=== PATIENT | male | born 1955 | race Asian ===

== ENCOUNTER → 2022-05-28 09:51 | Outpatient (CLI) | payer MEDICARE, OTHER, SELFPAY ==
[2022-05-28 11:03] LABS: COVID19 -Nasal RAPID Negative (Negative)
== END ==
PROVIDERS: PCP Internal Medicine; Referring Provider Internal Medicine; Visit Provider Internal Medicine
DX: Z20.822 Contact with and (suspected) exposure to COVID-19 (principal)
CPT/HCPCS: 87635; C9803

== ENCOUNTER → 2022-05-28 09:53 | Outpatient (CLI) | payer MEDICARE, OTHER, SELFPAY ==
--- NOTE | 2022-05-30 07:27 | PM.PFT.1 ---
Pulmonary Function Test Referral & Results Date Patient Seen: 05/28/22 Requesting provider: Bert Avelar Indication: Wheezing Results: The spirometry demonstrates an FVC of 2.47 L which is 81% of predicted. The FEV1 was measured at 2.10 L which is 93% of predicted. The FEV1/FVC ratio was 85 which is 113% of predicted. Following the administration of bronchodilator there was a 24% improvement in FEF 25-75%. Lung volumes show an SVC of 2.77 L which is 87% of predicted. The diffusing capacity was measured at 22.93 which is 121% of predicted. The maximum voluntary ventilation was normal Interpretation: This study demonstrates probably normal pulmonary function.
== END ==
PROVIDERS: PCP Internal Medicine; Referring Provider Internal Medicine; Visit Provider Internal Medicine
DX: J45.909 Unspecified asthma, uncomplicated (principal); J98.8 Other specified respiratory disorders; Z20.822 Contact with and (suspected) exposure to COVID-19
CPT/HCPCS: 87635; 94060; 94726; 94729; C9803

== ENCOUNTER → 2022-06-10 08:00 | Outpatient (CLI) | payer MEDICARE, OTHER, SELFPAY ==
[2022-06-10 09:05] LABS: Alanine Aminotransferase 46 IU/L (<50); Albumin 4.2 g/dL (3.5-5.0); Albumin Globulin Ratio 1.4 (1.0-2.8); Alkaline Phosphatase 67 U/L (38-126); Aspartate Aminotransferase 30 IU/L (17-59); BUN Creatinine Ratio 19.5 (6-22); Bilirubin Total 0.8 mg/dL (0.2-1.3); Blood Urea Nitrogen 15 mg/dL (9-20); Calcium 9.3 mg/dL (8.4-10.2); Carbon Dioxide 26 mmol/L (22-32); Chloride 101 mmol/L (98-107); Cholesterol 215 mg/dL (140-199); Estimated Glomerular Filt Rate > 60 mL/min (>60); Glucose 214 mg/dL (80-110); HDL Cholesterol 33 mg/dL (40-60); HEMOLYSIS < 15 (0-50); Potassium 4.1 mmol/L (3.4-5.1); Sodium 137 mmol/L (137-145); Total Protein 7.2 g/dL (6.3-8.2)
[2022-06-10 09:15] LABS: Triglycerides 667 mg/dL (35-150)
[2022-06-10 09:29] LABS: Prostate Specific Antigen Scrn 2.23 ng/mL (0.1-4.0)
== END ==
PROVIDERS: PCP Internal Medicine; Referring Provider Internal Medicine; Visit Provider Internal Medicine
DX: E78.2 Mixed hyperlipidemia (principal); Z12.5 Encounter for screening for malignant neoplasm of prostate; I10 Essential (primary) hypertension; J30.1 Allergic rhinitis due to pollen
CPT/HCPCS: 36415; 80053; 80061; G0103

== ENCOUNTER → 2022-06-18 09:47 | Outpatient (CLI) | payer MEDICARE, OTHER, SELFPAY ==
[2022-06-18 10:58] LABS: Hemoglobin A1C% w Est Avg Glu 7.8 % (4.0-6.0)
== END ==
PROVIDERS: PCP Internal Medicine; Referring Provider Internal Medicine; Visit Provider Internal Medicine
DX: R73.9 Hyperglycemia, unspecified (principal)
CPT/HCPCS: 36415; 83036

== ENCOUNTER → 2022-08-27 14:36 | Outpatient (CLI) | payer MEDICARE, OTHER, SELFPAY ==
--- NOTE | 2022-09-08 14:57 | DIAB.MNT ---
Initial Diabetes Medical Nutrition Therapy Assessment Name: Adan Rooney V Date: 08/27/22 Time: 3-4p Dx: Type II Diabetes Provider: Rosio Adan presents today for initial visit regarding T2DM. States he was dx sometime in 2017 or 2018. Endorses FH of DM with a brother, otherwise he is unsure. States his HgA1c has been 6.8% at the [facility]. Reports he achieved this by reducing rice intake and eliminating sugar in his coffee. States his TG have been high for a long time. Working with provider on this. PMH of HTN, HLD, glaucoma, and anxiety reported. Has not attended diabetes ed in the past. Has cut out rice from his diet for most meals now. Use to eat 1c with meals. Was having more sweets and soda occasionally Diet Recall: 8a: 1/2-1c oatmeal, 1/2-1c fruit, nuts 12p: often veggies and protein, no rice snack: unsalted nuts 6p: meat and veggies snacks nuts Beverages; 32-50oz water per day, 1c unsweet tea Anthropometrics: Ht: 5' Wt: 135# Physical Activity: Walk 60 min per day or elliptical 45-60 min on rainy days. Gardening. Self-Monitoring Blood Glucose: None but interested. Diabetes Medications: None Pertinent Labs: 7.8% HgA1c 06/2022 Past Medical History: (Last Updated 07/04/22 @ 15:57 by Bert Avelar MD) Diabetes type 2, controlled Essential hypertension H/O adenomatous polyp of colon Hay fever Hypertriglyceridemia Mild asthma without complication normal PFTs May 2022 Mixed hyperlipidemia Uncontrolled type 2 diabetes mellitus with hyperglycemia Nutrition Rx: Carbohydrates: Meal:30-45g Snack:15g *starting with lower carb recs based on hgA1c and current carb intake of 0g at most meals. Can consider more 45g consistent meals but would like to see more SMBG to see impact of food without medication and hgA1c >7%. Nutrition Diagnosis: - Nutrition and food related knowledge deficit r/t no previous MNT or DSME aeb pt report - Self monitoring deficit r/t knowledge deficit aeb pt report Intervention: This participant was very receptive. Provided appropriate educational handouts. Discussed the following topics: Completed intake assessment. Discussed barriers to care. Pathophysiology of T2DM HgA1c, its correlation to blood glucose numbers, and rationale for goal Importance of self-monitoring, how often, and when to check. Suggested checking at different times to evaluate meals Plate Method, impact of macronutrients on blood sugar, meal timing, carbohydrate counting, pairing macronutrients and spreading out carbohydrates for better blood glucose management Recommended servings for carbohydrates at meals and snacks Brainstormed appropriate meal plan based on food preferences Role of physical activity and following provider guidelines for safety Created SMART goals for patient self-care and success. Goals: Measure carb portions at meals if adding Start checking BG once you receive the supplies Follow-up: SACHI KONX follow-up in 3 weeks for classes and then 1:1 thereafter. Imani Clemente RDN, [facility] Certified Diabetes Care and Jig Boring Machine Operator For Metal P: [phone] Thank you for this referral
== END ==
PROVIDERS: PCP Internal Medicine; Referring Provider Internal Medicine; Visit Provider Internal Medicine
DX: E11.9 Type 2 diabetes mellitus without complications (principal); Z71.3 Dietary counseling and surveillance
CPT/HCPCS: 97802

== ENCOUNTER → 2022-09-02 09:28 | Outpatient (CLI) | payer MEDICARE, OTHER, SELFPAY ==
--- NOTE | 2022-09-08 15:09 | DIAB.FU ---
Diabetes Education Class Series: Diabetes and Nutrition Name: Adan Rooney V Date: 09/02/22 Time: 930a-12p Adan presents today for class 1 of 3 for DSME. Reports he feels he may not be drinking enough water based on discussion today. He participated in class today and seemed engaged. Class topics covered: ? Debunk nutrition myths and discuss how to sustain healthy eating long-term through moderation and variety ? Define macronutrients and determine their impact on blood sugars ? Discuss macronutrient pairing, Plate Method, and carb counting ? Review general recommendations for carbohydrates ? Practice label reading ? Discuss the role of fiber in diabetes and provide examples of sources ? Review heart health nutrition: fats, fiber, and sodium ? Determine recommendations for grocery shopping and eating out ? Discuss alcohol recommendations ? Review the role of substitute sugars in diabetes management ? Set SMART goals Goal Set: Measure water intake. Follow-up: Diabetes Physiology and Medication Class in one week Imani Clemente RDN, [facility] Registered Dietitian, Certified Diabetes Care and Promotions Executive Producer [phone] [email or web address]
== END ==
PROVIDERS: PCP Internal Medicine; Referring Provider Internal Medicine; Visit Provider Internal Medicine
DX: E11.9 Type 2 diabetes mellitus without complications (principal); Z71.3 Dietary counseling and surveillance
CPT/HCPCS: G0109

== ENCOUNTER → 2022-09-09 09:30 | Outpatient (CLI) | payer MEDICARE, OTHER, SELFPAY ==
--- NOTE | 2022-09-10 16:55 | DIAB.FU ---
Diabetes Education Class Series: Diabetes Physiology and Medications Name: Adan Rooney V Date: 09/09/22 Time: [id number] Adan presents for class 2 of 3 for DSME. Has questions regarding fluids recs today and how this impact diabetes/BG/overall health. He has been working on his water intake. Class topics covered: ? Diabetes pathophysiology ? Discuss different types of diabetes ? Review criteria for diagnosing diabetes ? Review HgA1c measurement and associated blood sugars ? Review blood sugar monitoring safety, technique, and goals ? Discuss ways to reduce complications associated with diabetes, includes microvascular and macrovascular complications ? Review diabetes medications types, action, and side effects ? Health care visits recommended for people with T2DM ? Immunization recommended for people with T2DM ? SMART goals review Follow-up: Diabetes Lifestyle and Ongoing Support Class next week Imani Clemente RDN, [facility] Registered Dietitian, Certified Diabetes Care and Centrifuge Separator Tender [phone] [email or web address]
== END ==
PROVIDERS: PCP Internal Medicine; Referring Provider Internal Medicine; Visit Provider Internal Medicine
DX: E11.9 Type 2 diabetes mellitus without complications (principal); Z71.3 Dietary counseling and surveillance
CPT/HCPCS: G0109

== ENCOUNTER → 2022-09-16 09:34 | Outpatient (CLI) | payer MEDICARE, OTHER, SELFPAY ==
--- NOTE | 2022-09-16 11:50 | DIAB.FU ---
Diabetes Education Class Series: Diabetes Lifestyle Change and Ongoing Support Name: Adan Rooney V Date: 09/16/22 Time: [id number] Adan presents for class 3 of 3 for DSME. States he as been measuring carb portions and checking BG. Reports he has been checking his BG and walking regularly. Has some questions as to when to check BG, which we reviewed today. Also, states he would like to work on more strength training and stress management with meditation. Class topics covered: ? Discuss the difference between physical activity and exercise ? Determine physical activity benefits and impact on diabetes ? Review physical activity recommendations and safety ? Discuss emergency preparedness ? Discuss diabetes and emotions (diabetes burnout/distress) ? Review and practice stress management techniques ? Review support groups and community resources ? Discuss the role of family support in diabetes care ? What is going well? Challenges of diabetes? ? Set SMART goals Goal Set: Incorporate strength training safely. Follow-up: 1:1 visit follow-up Imani Clemente RDN, [facility] Registered Dietitian, Certified Diabetes Care and Document Review Specialist [phone] [email or web address]
== END ==
PROVIDERS: PCP Internal Medicine; Referring Provider Internal Medicine; Visit Provider Internal Medicine
DX: E11.9 Type 2 diabetes mellitus without complications (principal); Z71.3 Dietary counseling and surveillance
CPT/HCPCS: G0109

== ENCOUNTER → 2022-10-01 13:04 | Outpatient (CLI) | payer MEDICARE, OTHER, SELFPAY ==
--- NOTE | 2022-10-14 17:21 | DIAB.MNTFU ---
Follow-up Diabetes Medical Nutrition Therapy Assessment Name: Adan Rooney V Date: 10/01/22 Time: 1:10-1:45p Dx: Type II Diabetes Toribio presents for follow-up after completion of DSME classes. States he continues to be very conscious of carb portions, more specifically rice. Does voice some concern about unintentional weight loss as a result. States he is down 10-12# with a recent weight os 127#. Diet recall indicates very small portions of rice 1/3c at meals. Ideally he could increase this up to 1 cup per meal, however he would prefer to keep portions small. Most meals are 15-30g CHO and snacks are often 0-20g CHO. Anthropometrics: Ht: 5' Wt: 127# reported Physical Activity: elliptical 30-45 minutes 1-2 days per week and walks other days. Self-Monitoring Blood Glucose: States he has noticed that his peak BG is often 1 hour pc. All BG in goal, with exception to one elevated FBG Date Pre Post Pre Post Pre Post HS 09/25 119 167 113 09/26 126 09/27 141 100 122 09/28 120 159 09/29 116 155 137 121 09/30 118 168 130 163 10/01 110 121 Diabetes Medications: None Pertinent Labs: 7.8% HgA1c 06/2022 Past Medical History: (Last Updated 07/04/22 @ 15:57 by Bert Avelar MD) Diabetes type 2, controlled Essential hypertension H/O adenomatous polyp of colon Hay fever Hypertriglyceridemia Mild asthma without complication normal PFTs May 2022 Mixed hyperlipidemia Uncontrolled type 2 diabetes mellitus with hyperglycemia Nutrition Rx: Carbohydrates: Meal:30-45g Snack:15g *can increase to 30-45g per diet recall Nutrition Diagnosis: - Nutrition and food related knowledge deficit r/t no previous MNT or DSME aeb pt report - improved - Self monitoring deficit r/t knowledge deficit aeb pt report - improved - Predicted inadequate CHO intake r/t trying to reduce to manage BG aeb diet recall <30g at meals and pt report - new Intervention: This participant was very receptive. Provided appropriate educational handouts. Discussed the following topics: Blood sugar review and trends. Room for increased carb intake in moderation. Increasing intake to sustain weight goals. Physical activity plan and progress Created SMART goals for patient self-care and success. Goals: Measure carb portions at meals if adding- met Start checking BG once you receive the supplies- met Increase rice to 1/2-1c- new Follow-up: SACHI KNOX follow-up prn. Adan is managing his BG very well. Some concerns with his unintentional weight loss and low intake on some meals. He plans to call for follow-up if HgA1c goes up or if weight continues to trend down. Imani Clemente, SACHI, [facility] Certified Diabetes Care and Conciliation Court Judge P: [phone] Thank you for this referral
== END ==
PROVIDERS: PCP Internal Medicine; Referring Provider Internal Medicine; Visit Provider Internal Medicine
DX: E11.9 Type 2 diabetes mellitus without complications (principal); Z71.3 Dietary counseling and surveillance
CPT/HCPCS: 97803

== ENCOUNTER → 2022-10-08 08:09 | Outpatient (CLI) | payer MEDICARE, OTHER, SELFPAY ==
[2022-10-08 10:51] LABS: Hemoglobin A1C% w Est Avg Glu 5.4 % (4.0-6.0)
[2022-10-08 10:53] LABS: Cholesterol 130 mg/dL (140-199); HDL Cholesterol 36 mg/dL (40-60); LDL Cholesterol Calculated 74 mg/dL (<100); Triglycerides 102 mg/dL (35-150)
[2022-10-08 11:05] LABS: LDL Cholesterol Direct 63 mg/dL (<100)
== END ==
PROVIDERS: PCP Internal Medicine; Referring Provider Internal Medicine; Visit Provider Internal Medicine
DX: E11.65 Type 2 diabetes mellitus with hyperglycemia (principal)
CPT/HCPCS: 36415; 80061; 83036; 83721

== ENCOUNTER → 2022-12-31 08:02 | Outpatient (CLI) | payer MEDICARE, OTHER, SELFPAY ==
[2022-12-31 09:43] LABS: BUN Creatinine Ratio 28.8 (6-22); Blood Urea Nitrogen 19 mg/dL (9-20); Calcium 8.8 mg/dL (8.4-10.2); Carbon Dioxide 27 mmol/L (22-32); Chloride 101 mmol/L (98-107); Estimated Glomerular Filt Rate > 60 mL/min (>60); Glucose 107 mg/dL (80-110); HEMOLYSIS < 15 (0-50); Potassium 3.8 mmol/L (3.4-5.1); Sodium 140 mmol/L (137-145)
[2022-12-31 10:30] LABS: Hemoglobin A1C% w Est Avg Glu 5.2 % (4.0-6.0)
== END ==
PROVIDERS: PCP Internal Medicine; Referring Provider Internal Medicine; Visit Provider Internal Medicine
DX: E11.9 Type 2 diabetes mellitus without complications (principal); E78.2 Mixed hyperlipidemia; I10 Essential (primary) hypertension
CPT/HCPCS: 36415; 80048; 83036

== ENCOUNTER → 2023-04-01 07:54 | Outpatient (CLI) | payer MEDICARE, OTHER, SELFPAY ==
[2023-04-01 09:16] LABS: Alanine Aminotransferase 40 IU/L (<50); Albumin 4.6 g/dL (3.5-5.0); Albumin Globulin Ratio 1.6 (1.0-2.8); Alkaline Phosphatase 56 U/L (38-126); Aspartate Aminotransferase 30 IU/L (17-59); BUN Creatinine Ratio 27.5 (6-22); Bilirubin Total 0.6 mg/dL (0.2-1.3); Blood Urea Nitrogen 22 mg/dL (9-20); Calcium 9.5 mg/dL (8.4-10.2); Carbon Dioxide 28 mmol/L (22-32); Chloride 101 mmol/L (98-107); Cholesterol 134 mg/dL (140-199); Estimated Glomerular Filt Rate > 60 mL/min (>60); Globulin 2.9 g/dL (1.7-4.1); Glucose 124 mg/dL (80-110); HDL Cholesterol 33 mg/dL (40-60); HEMOLYSIS < 15 (0-50); LDL Cholesterol Calculated 69 mg/dL (<100); Potassium 4.5 mmol/L (3.4-5.1); Sodium 140 mmol/L (137-145); Total Protein 7.5 g/dL (6.3-8.2); Triglycerides 161 mg/dL (35-150)
[2023-04-02 08:13] LABS: Labcorp Hemoglobin (Hb) A1c 5.1 % (4.8-5.6)
== END ==
PROVIDERS: PCP Internal Medicine; Referring Provider Internal Medicine; Visit Provider Internal Medicine
DX: I10 Essential (primary) hypertension (principal); E78.2 Mixed hyperlipidemia; E11.9 Type 2 diabetes mellitus without complications
CPT/HCPCS: 36415; 80053; 80061; 83036

== ENCOUNTER 2023-06-16 12:45 | Day surgery (SDC) | payer MEDICARE, OTHER, SELFPAY ==
[2023-06-16] VITALS (7 sets, daily range): BP systolic 81–157; BP diastolic 57–78; PULSE 56–85; RESP 16–18; TEMP 36.1–36.4; O2SAT 93–97; BMI 23.8
[2023-06-16] MEDS: LACTATED RINGERS 1,000 ML 200 ML IV (13:42)
--- NOTE | 2023-06-16 14:09 | P.HP_ITS ---
History of Present Illness History of Present Illness Date Patient Seen: 06/16/23 Time Patient Seen: 14:09 Chief complaint: Screening Colonoscopy Narrative: 67-year-old man personal history of colonic polyps here for screening colonoscopy. Last colonoscopy approximately 6 years ago. No family history of intestinal malignancy. No abdominal concerns including abdominal pain, unintentional weight loss blood per rectum. [facility] Medical History Diabetes type 2, controlled Essential hypertension H/O adenomatous polyp of colon Hay fever Hypertriglyceridemia Mild asthma without complication Mixed hyperlipidemia Social History household members: spouse Smoking Status: Never smoker Meds Home Medications and Allergies Home Medications Medication Instructions Recorded Confirmed Type aspirin 81 mg tablet,delayed 81 mg PO DAILY #90 tabs 05/12/22 06/16/23 Rx release atorvastatin 20 mg tablet 20 mg PO BEDTIME #90 tabs 05/12/22 06/16/23 Rx montelukast 10 mg tablet 10 mg PO DAILY #90 tabs 05/12/22 06/16/23 Rx clobetasol 0.05 % topical cream 1 applic topical BID PRN rash #45 10/17/22 06/16/23 Rx grams fluticasone propionate 50 2 spray intranasal BEDTIME #16 01/02/23 06/16/23 Rx mcg/actuation nasal grams spray,suspension hydrochlorothiazide 25 mg tablet 25 mg PO DAILY #90 tabs 01/09/23 06/16/23 Rx latanoprost 0.005 % eye drops 1 drp EYE-LEFT DAILY glaucoma 01/09/23 06/16/23 History loratadine 10 mg tablet 10 mg PO DAILY #90 tabs 01/09/23 06/16/23 Rx losartan 100 mg tablet 100 mg PO DAILY #90 tabs 01/09/23 06/16/23 Rx meloxicam 7.5 mg tablet 7.5 mg PO DAILY #90 tabs 02/11/23 06/16/23 Rx Allergies Allergy/AdvReac Type Severity Reaction Status Date / Time No Known Drug Allergies Allergy Verified 04/10/23 14:37 Exam Vital Signs (past 8 hours): - 06/16/23 13:32 Temperature 97.3 F L Pulse Rate 85 Respiratory Rate 16 Blood Pressure 157/78 H Pulse Oximetry 96 Oxygen Delivery Method Room Air Oxygen Delivery Method Room Air Narrative Exam Narrative: General adult man alert oriented no acute distress Chest nonlabored respiration Abdomen soft nontender nondistended Assessment & Plan Assessment and plan (1) H/O adenomatous polyp of colon: Status: Inactive Assessment & Plan narrative: The patient requires colorectal screening and colonoscopy is recommended. Technical details were discussed. Risks, benefits, alternatives explained. Risks including but not limited to myocardial infarction, aspiration, bleeding, pain, missed lesion, incomplete examination, need for further radiographic studies, colonic perforation, and need for major abdominal surgery were discussed. All questions were answered to their satisfaction, and they are in agreement with this plan.
--- NOTE | 2023-06-16 14:09 | PM.OP.COLON ---
Operative Date/Time/Diagnoses Date of procedure: 06/16/23 Time of procedure: 14:09 Pre-op diagnosis: Personal history of colonic polyps Post-op diagnosis: same Procedure & Clinicians Study performed: Colonoscopy Same procedure as scheduled: Yes Indications: Personal history of colonic polyps. Colorectal screening. Surgeon: Ishan Avalos Procedure Notes Procedure in detail: The history and physical was performed/updated and the patient is ASA class is 2. The procedure was discussed in detail with the patient. Potential risks complications including infection, bleeding, missed diagnosis, perforation, need for surgery, and were explained. Their questions were answered and informed consent was obtained. Patient was brought to the procedure room and placed standard monitoring equipment. The patient's vital signs were monitored continuously throughout the entire procedure. Prior to starting time-out was performed. The patient was placed in the left lateral recumbent position. Procedural sedation was administered by anesthesia. Examination began with a thorough inspection of the perianal area there was no evidence of fissures, fistulae, external hemorrhoids or cutaneous malignancy. The colonoscopy scope was then placed into the anal canal and was advanced to the cecum, which was identified by the ileocecal valve, the appendiceal orifice and the confluence of the taenia. The scope was then slowly withdrawn examining colon thoroughly in all directions, irrigating it of any residual stool. No masses or polyps. Normal healthy colon. The patient tolerated the procedure well. They will be discharged once criteria are met. The prep was of good/excellent quality. The withdrawl time was 6 minutes. Impression: Normal colonoscopy Post-procedure Recommendations: Colonoscopy in 10 years Disposition: same day surgery
== END 2023-06-16 15:30 | disposition home or self-care (01) ==
PROVIDERS: PCP Internal Medicine; Referring Provider Surgery; Visit Provider Surgery
PROC: 0DJD8ZZ Inspection of Lower Intestinal Tract, Via Natural or Artificial Opening Endoscopic (ICD-10-PCS; CPT 45378; principal; 2023-06-16 14:15)
DX: Z12.11 Encounter for screening for malignant neoplasm of colon (principal); Z86.010 Personal history of colon polyps
CPT/HCPCS: G0105; J2704

== ENCOUNTER → 2023-06-29 07:28 | Outpatient (CLI) | payer MEDICARE, OTHER, SELFPAY ==
[2023-06-29 07:53] LABS: Hemoglobin A1C% w Est Avg Glu 4.7 % (4.0-6.0)
[2023-06-29 08:29] LABS: Alanine Aminotransferase 47 IU/L (<50); Albumin 4.3 g/dL (3.5-5.0); Albumin Globulin Ratio 1.5 (1.0-2.8); Alkaline Phosphatase 36 U/L (38-126); Aspartate Aminotransferase 42 IU/L (17-59); BUN Creatinine Ratio 26.3 (6-22); Bilirubin Total 0.9 mg/dL (0.2-1.3); Blood Urea Nitrogen 21 mg/dL (9-20); Calcium 9.5 mg/dL (8.4-10.2); Carbon Dioxide 25 mmol/L (22-32); Chloride 105 mmol/L (98-107); Cholesterol 117 mg/dL (140-199); Estimated Glomerular Filt Rate > 60 mL/min (>60); Globulin 2.8 g/dL (1.7-4.1); Glucose 111 mg/dL (80-110); HDL Cholesterol 44 mg/dL (40-60); HEMOLYSIS < 15 (0-50); LDL Cholesterol Calculated 60 mg/dL (<100); Sodium 138 mmol/L (137-145); Total Protein 7.1 g/dL (6.3-8.2); Triglycerides 65 mg/dL (35-150)
[2023-06-29 09:00] LABS: Prostate Specific Antigen Scrn 3.25 ng/mL (0.1-4.0)
== END ==
PROVIDERS: PCP Internal Medicine; Referring Provider Internal Medicine; Visit Provider Internal Medicine
DX: E11.9 Type 2 diabetes mellitus without complications (principal); Z12.5 Encounter for screening for malignant neoplasm of prostate; E78.1 Pure hyperglyceridemia; E78.2 Mixed hyperlipidemia; I10 Essential (primary) hypertension
CPT/HCPCS: 36415; 80053; 80061; 83036; G0103

== ENCOUNTER → 2023-12-30 07:51 | Outpatient (CLI) | payer MEDICARE, OTHER, SELFPAY ==
[2023-12-30 09:33] LABS: BUN Creatinine Ratio 26.8 (6-22); Blood Urea Nitrogen 22 mg/dL (9-20); Calcium 9.6 mg/dL (8.4-10.2); Carbon Dioxide 25 mmol/L (22-32); Chloride 103 mmol/L (98-107); Estimated Glomerular Filt Rate > 60 mL/min (>60); Glucose 104 mg/dL (80-110); HEMOLYSIS < 15 (0-50); Potassium 4.1 mmol/L (3.4-5.1); Sodium 138 mmol/L (137-145)
[2023-12-30 10:53] LABS: Creatinine Urine Random 83.8 mg/dL
[2023-12-30 10:57] LABS: Microalbumin Urine Random < 0.6 mg/dL (0-1.6)
[2023-12-30 12:11] LABS: Hemoglobin A1C% w Est Avg Glu 4.9 % (4.0-6.0)
== END ==
LOC: LAB 07:52
PROVIDERS: PCP Internal Medicine; Referring Provider Internal Medicine; Visit Provider Internal Medicine
DX: E11.9 Type 2 diabetes mellitus without complications (principal)
CPT/HCPCS: 36415; 80048; 82043; 82570; 83036

== ENCOUNTER → 2024-04-29 14:40 | Outpatient (CLI) | payer MEDICARE, OTHER, SELFPAY ==
--- NOTE | 2024-04-29 14:42 | DI.RAD.S_ITS ---
PROCEDURE: XR CHEST 2V INDICATIONS: [facility] TECHNIQUE: 2 views of the chest were acquired. COMPARISON: None. FINDINGS: Surgical changes and devices: None. Lungs and pleura: There may be subtle perihilar infiltrates bilaterally. No pleural effusions or pneumothorax. Mediastinum: Mediastinal contours are normal. Heart size is normal. Bones and chest wall: No suspicious bony abnormalities. Soft tissues appear unremarkable. IMPRESSION: 1. Question subtle bilateral perihilar infiltrates suspicious for developing pneumonia. Dictated by: Gigi Garay M.D. on 04/29/2024 at 16:40 Approved by: Gigi Garay M.D. on 04/29/2024 at 16:41
[2024-04-29 15:31] LABS: Add Manual Diff / Slide Review NO; Basophils Absolute Auto 100 /uL (0-100); Basophils Percent Auto 0.9 % (0-2); Eosinophils Absolute Auto 700 /uL (0-450); Eosinophils Percent Auto 9.3 % (2-4); Hematocrit 43.5 % (41-53); Lymphocytes Absolute Auto 2100 /uL (1100-4500); Lymphocytes Percent Auto 26.9 % (25-40); Mean Corpuscular HGB Conc 34.6 % (30-36); Mean Corpuscular Hemoglobin 33.4 PG (26-34); Mean Corpuscular Volume 96.6 fL (80-100); Monocytes Absolute Auto 600 /uL (0-900); Monocytes Percent Auto 8.2 % (3-14); Neutrophils Absolute Auto 4300 /uL (1500-7000); Neutrophils Percent Auto 54.7 % (50-75); Platelet Count 234 X10^3/uL (150-400); Red Cell Distribution Width 12.8 % (11.6-14.8); White Blood Cell Count 7.9 X10^3/uL (4.5-11.0)
[2024-04-29 15:48] LABS: Alanine Aminotransferase 32 IU/L (<50); Albumin 4.6 g/dL (3.5-5.0); Albumin Globulin Ratio 1.5 (1.0-2.8); Alkaline Phosphatase 48 U/L (38-126); Aspartate Aminotransferase 33 IU/L (17-59); BUN Creatinine Ratio 27.4 (6-22); Bilirubin Total 0.5 mg/dL (0.2-1.3); Blood Urea Nitrogen 26 mg/dL (9-20); Calcium 9.3 mg/dL (8.4-10.2); Carbon Dioxide 28 mmol/L (22-32); Chloride 104 mmol/L (98-107); Estimated Glomerular Filt Rate > 60 mL/min (>60); Glucose 112 mg/dL (80-110); HEMOLYSIS 25 (0-50); Sodium 139 mmol/L (137-145); Total Protein 7.6 g/dL (6.3-8.2)
[2024-04-29 16:16] LABS: TSH w/ Reflex to FT4 2.41 uIU/mL (0.47-4.68)
== END ==
PROVIDERS: PCP Internal Medicine; Referring Provider Internal Medicine; Visit Provider Internal Medicine
DX: J45.909 Unspecified asthma, uncomplicated (principal); I10 Essential (primary) hypertension
CPT/HCPCS: 36415; 71046; 80053; 84443; 85025

== ENCOUNTER → 2024-05-12 15:23 | Outpatient (CLI) | payer MEDICARE, OTHER, SELFPAY | LOC: CAR 15:24 | PROVIDERS: PCP Internal Medicine; Referring Provider Internal Medicine; Visit Provider Internal Medicine | DX: R00.2 Palpitations (principal) | CPT/HCPCS: 93242 ==

== ENCOUNTER → 2024-07-06 07:16 | Outpatient (CLI) | payer MEDICARE, OTHER, SELFPAY ==
--- NOTE | 2024-07-06 08:20 | DI.ECHO.S_ITS ---
[facility]+ [facility] : : [address] : : [place] : : [id number] : : Phone: [phone] Echocardiogram Report + + :Name: MARCO A AHUJA V Study Date: 07/06/2024 Height: 60 in : :[facility] ReadingLocation: Weight: 135 lb : : Gender: Male BSA: 1.6 m2 : :: 1955 Age: 68 yrs BP: 149/79 mmHg: :Reason For Study: ATRIAL FIBRILLATION : :Ordering Physician: STEFANIA, : :SAMUEL Avelar Performed By: Viola Burger : :Referring: SAMUEL AGUIAR : + + Interpretation Summary The left ventricle is normal in size and wall thickness. The left ventricular ejection fraction is normal. The ejection fraction is estimated to be 60-65%. The right ventricle is normal in size and function. There is mild mitral regurgitation. There is mild tricuspid regurgitation. The right ventricular systolic pressure is estimated to be at least 28 mmHg based on an estimated right atrial pressure of 3 mm Hg. Procedure: A two-dimensional transthoracic echocardiogram with color flow and Doppler was performed. The study quality was technically adequate. There is no prior echocardiogram noted for this patient. The patient was in sinus bradycardia with heart rates between 50-55 bpm during the exam. Left Ventricle: The left ventricle is normal in size and wall thickness. There is no thrombus. The ejection fraction is estimated to be 60-65%. The left ventricular ejection fraction is normal. There are no focal wall motion abnormalities. Diastolic parameters suggest a relaxation abnormality of the left ventricle, consistent with probable normal filling pressures. Right Ventricle: The right ventricle is normal in size and function. Atria: The left atrial size is normal. Right atrial size is normal. There is no Doppler evidence for an interatrial shunt. Mitral Valve: The mitral valve leaflets are slightly calcified. The mitral valve chordae are thickened and/or calcified. There is mild mitral regurgitation. Aortic Valve: The aortic valve is trileaflet. The aortic valve opens well. There is no aortic valve stenosis. No aortic regurgitation is present. Tricuspid Valve: The tricuspid valve is normal. There is mild tricuspid regurgitation. The right ventricular systolic pressure is estimated to be at least 28 mmHg based on an estimated right atrial pressure of 3 mm Hg. Pulmonic Valve: The pulmonic valve is not well seen, but is grossly normal. There is mild pulmonic regurgitation. Great Vessels: The aortic root is normal size. The dimensions of the ascending aorta are normal. The IVC is of normal diameter and collapses greater than 50% with a sniff. This suggests a low right atrial pressure of 3 mm Hg. Pericardium/ Pleura There is no pericardial effusion. There is no pleural effusion. MMode/2D Measurements & Calculations LVIDd: 4.7 cm LVOT diam: 2.0 cm LVIDs: 3.3 cm Ao root diam: 2.9 cm FS: 29.3 % asc Aorta Diam: 2.9 cm IVSd: 0.51 cm Ao Arch Diam (Prox Trans): 2.4 cm LVPWd: 0.71 cm LV sanchez. diameter/BSA (cm/m^2): 3.0 LV sys. diameter/BSA (cm/m^2): 2.1 LA A2 area: 15.1 cm2 RA long axis: 4.4 cm LA A4 area: 15.6 cm2 RA area: 12.7 cm2 LA length (vol): 4.9 cm RA vol: 31.1 ml LA vol: 40.5 ml RA : 19.7 ml/m2 LA vol index: 25.7 ml/m2 IVC diam: 1.1 cm RVD1 (basal): 3.4 cm RVD2 (mid): 2.7 cm TAPSE: 2.3 cm Doppler Measurements & Calculations Ao V2 max: 146.6 cm/sec LVOT Max Jann: 100.8 cm/sec Ao V2 mean: 99.7 cm/sec LV V1 max P.1 mmHg Ao max P.6 mmHg LV V1 VTI: 22.0 cm Ao mean P.4 mmHg AKIN(I,D): 2.0 cm2 Ao V2 VTI: 32.6 cm AKIN(V,D): 2.1 cm2 sev ratio: 0.67 AKIN indexed to BSA (cm^2/m^2): 1.3 MV E max jann: 98.9 cm/sec TR max jann: 250.1 cm/sec MV A max jann: 100.9 cm/sec TR max P.0 mmHg MV E/A: 0.98 PA V2 max: 113.9 cm/sec Med Peak E' Jann: 9.3 cm/sec PA V2 mean: 81.3 cm/sec E/E' med: 10.6 PA mean P.9 mmHg Lat Peak E' Jann: 10.1 cm/sec PA pr(Accel): 19.1 mmHg E/E' lat: 9.7 E/e' average: 10.2 MV dec time: 0.23 sec SVLVOT): 66.1 ml Reading Physician:01:29 PM
[2024-07-06 08:32] LABS: Alanine Aminotransferase 30 IU/L (<50); Albumin 4.5 g/dL (3.5-5.0); Albumin Globulin Ratio 1.8 (1.0-2.8); Alkaline Phosphatase 44 U/L (38-126); Aspartate Aminotransferase 27 IU/L (17-59); Bilirubin Total 0.8 mg/dL (0.2-1.3); Blood Urea Nitrogen 27 mg/dL (9-20); Calcium 9.4 mg/dL (8.4-10.2); Carbon Dioxide 25 mmol/L (22-32); Chloride 103 mmol/L (98-107); Cholesterol 147 mg/dL (140-199); Estimated Glomerular Filt Rate > 60 mL/min (>60); Globulin 2.5 g/dL (1.7-4.1); Glucose 125 mg/dL (80-110); HDL Cholesterol 37 mg/dL (40-60); HEMOLYSIS < 15 (0-50); LDL Cholesterol Calculated 77 mg/dL (<100); Sodium 138 mmol/L (137-145); Triglycerides 163 mg/dL (35-150)
[2024-07-06 08:54] LABS: Hemoglobin A1C% w Est Avg Glu 4.9 % (4.0-6.0); Prostate Specific Antigen Scrn 4.01 ng/mL (0.1-4.0); TSH w/ Reflex to FT4 2.03 uIU/mL (0.47-4.68)
== END ==
LOC: ECHO 07:16
PROVIDERS: PCP Internal Medicine; Referring Provider Internal Medicine; Visit Provider Internal Medicine
DX: E11.9 Type 2 diabetes mellitus without complications (principal); I10 Essential (primary) hypertension; Z12.5 Encounter for screening for malignant neoplasm of prostate; I48.0 Paroxysmal atrial fibrillation; E78.2 Mixed hyperlipidemia; I34.0 Nonrheumatic mitral (valve) insufficiency; I07.1 Rheumatic tricuspid insufficiency
CPT/HCPCS: 36415; 80053; 80061; 83036; 84443; 93306; G0103

== ENCOUNTER → 2024-08-15 09:07 | Outpatient (CLI) | payer MEDICARE, OTHER, SELFPAY ==
--- NOTE | 2024-08-15 09:08 | DI.NM.S_ITS ---
PROCEDURE: NM PADDY PERF SPECT REST & STR Rest and exercise myocardial perfusion SPECT with gated imaging and ejection fraction RADIOPHARMACEUTICAL: 11.6 mCi Tc-99m sestamibi IV at rest and 24.8 mCi Tc-99m sestamibi IV at peak exercise. A 2 day-protocol was performed. INDICATIONS: a fib PQRS ATTESTATIONS: Measure 322 - Is this imaging test primarily performed on a low-risk surgery patient for preoperative evaluation within 30 days preceding their low-risk non-cardiac surgery? Low-risk surgery is defined as cardiac or myocardial infarction less than 1%, including (but not limited to) endoscopic procedures, superficial procedures, cataract surgery, and excisional breast surgery: Answer: No Measure 323 - Is this imaging test performed primarily for the monitoring of an asymptomatic patient who had percutaneous coronary intervention on the visit date or within 2 years of the visit date? Answer: No Measure 324 - Is this imaging test performed primarily for the initial detection and risk assessment on an asymptomatic, low coronary heart disease patient? Low CHD risk definition = clinicians should consider the maximum number of available patient factors used to estimate risk based on Golden (ATP III criteria), typically age, gender, diabetes, smoking status, and use of blood pressure medication, and integrate age appropriate estimates for missing elements, such as LDL or standard blood pressure. Answer: No TECHNIQUE: Radiopharmaceutical was injected at peak stress test, and also at rest. SPECT images were obtained. SPECT myocardial perfusion images were displayed in short axis, horizontal long axis, and vertical long axis views. Gated images were reviewed using PaladionQUANT software. COMPARISON: None. CARDIAC STRESS: A standard Vinayak treadmill exercise tolerance test was performed by the patient under the supervision of an attending staff. The patient exercised for 6 minutes and 58 seconds; functional aerobic impairment (BRAYNT) is +5%. Hemodynamic data: There is normal blood pressure and heart rate response to exercise stress. Patient achieved 95 of maximum predicted heart rate at peak exercise. Symptoms: Patient denied chest pain during exercise. EKG: No diagnostic EKG changes of ischemia; no ectopy. FINDINGS: Raw data: There is good myocardial labeling by radiotracer. No significant motion artifacts. Fydw-ub-fuent ratio is 0.27 (normal is less than 0.38 for sestamibi tracer, and less than 0.50 for thallium tracer). Left ventricle function: Gated images demonstrate normal left ventricle wall thickening. No segmental wall motion abnormality. No transient ischemic dilation; TID is 0.75 (normal less than 1.3). The left ventricle resting end-diastolic volume is 83 mL. Left ventricle stress ejection fraction is 73; normal values are above 45%. Myocardial perfusion: There is normal distribution of activity in the left and right ventricular myocardium. No fixed or reversible perfusion defects. IMPRESSION: Normal exercise myocardial perfusion scan with no evidence of ischemia nor infarction. Dictated by: Lanre Ruelas M.D. on 08/15/2024 at 16:34 Approved by: Lanre Ruelas M.D. on 08/15/2024 at 16:36
== END ==
PROVIDERS: PCP Internal Medicine; Referring Provider Internal Medicine; Visit Provider Internal Medicine
DX: I48.0 Paroxysmal atrial fibrillation (principal)
CPT/HCPCS: 78452; 93017; A9502

== ENCOUNTER → 2025-01-09 08:03 | Outpatient (CLI) | payer MEDICARE, OTHER, SELFPAY ==
[2025-01-09 09:37] LABS: Add Manual Diff / Slide Review NO; Basophils Absolute Auto 100 /uL (0-100); Basophils Percent Auto 1.5 % (0-2); Eosinophils Absolute Auto 600 /uL (0-450); Eosinophils Percent Auto 8.8 % (2-4); Hematocrit 46.8 % (41-53); Lymphocytes Absolute Auto 1700 /uL (1100-4500); Lymphocytes Percent Auto 26.6 % (25-40); Mean Corpuscular HGB Conc 34.1 % (30-36); Mean Corpuscular Hemoglobin 32.6 PG (26-34); Mean Corpuscular Volume 95.6 fL (80-100); Monocytes Absolute Auto 600 /uL (0-900); Monocytes Percent Auto 8.6 % (3-14); Neutrophils Absolute Auto 3500 /uL (1500-7000); Neutrophils Percent Auto 54.5 % (50-75); Platelet Count 218 X10^3/uL (150-400); White Blood Cell Count 6.4 X10^3/uL (4.5-11.0)
[2025-01-09 09:45] LABS: Hemoglobin A1C% w Est Avg Glu 4.9 % (4.0-6.0)
[2025-01-09 10:02] LABS: Alanine Aminotransferase 37 IU/L (<50); Albumin 4.6 g/dL (3.5-5.0); Albumin Globulin Ratio 1.7 (1.0-2.8); Alkaline Phosphatase 47 U/L (38-126); Aspartate Aminotransferase 32 IU/L (17-59); Bilirubin Total 0.8 mg/dL (0.2-1.3); Blood Urea Nitrogen 24 mg/dL (9-20); Calcium 9.6 mg/dL (8.4-10.2); Carbon Dioxide 27 mmol/L (22-32); Chloride 102 mmol/L (98-107); Cholesterol 168 mg/dL (140-199); Estimated Glomerular Filt Rate > 60 mL/min (>60); Globulin 2.7 g/dL (1.7-4.1); Glucose 120 mg/dL (80-110); HDL Cholesterol 35 mg/dL (40-60); HEMOLYSIS < 15 (0-50); LDL Cholesterol Calculated 97 mg/dL (<100); Potassium 4.4 mmol/L (3.4-5.1); Sodium 138 mmol/L (137-145); Total Protein 7.3 g/dL (6.3-8.2); Triglycerides 182 mg/dL (35-150)
== END ==
PROVIDERS: PCP Internal Medicine; Referring Provider Internal Medicine; Visit Provider Internal Medicine
DX: E11.9 Type 2 diabetes mellitus without complications (principal); E78.2 Mixed hyperlipidemia; I10 Essential (primary) hypertension
CPT/HCPCS: 36415; 80053; 80061; 83036; 85025

== ENCOUNTER → 2025-01-23 11:35 | Outpatient (CLI) | payer MEDICARE, OTHER, SELFPAY ==
[2025-01-24 07:11] LABS: PSA Free % 23.8 % (.); PSA, Total 3.2 ng/mL (0.0-4.0)
== END ==
PROVIDERS: PCP Internal Medicine; Referring Provider Internal Medicine; Visit Provider Internal Medicine
DX: R97.20 Elevated prostate specific antigen [PSA] (principal)
CPT/HCPCS: 36415; 84153; 84154

== ENCOUNTER → 2025-07-13 08:05 | Outpatient (CLI) | payer MEDICARE, OTHER, SELFPAY ==
[2025-07-13 09:37] LABS: Alanine Aminotransferase 34 IU/L (<50); Albumin 4.5 g/dL (3.5-5.0); Albumin Globulin Ratio 1.7 (1.0-2.8); Alkaline Phosphatase 43 U/L (38-126); Blood Urea Nitrogen 23 mg/dL (9-20); Calcium 9.5 mg/dL (8.4-10.2); Carbon Dioxide 26 mmol/L (22-32); Chloride 102 mmol/L (98-107); Cholesterol 158 mg/dL (140-199); Estimated Glomerular Filt Rate > 60 mL/min (>60); Globulin 2.6 g/dL (1.7-4.1); Glucose 116 mg/dL (70-99); HDL Cholesterol 44 mg/dL (40-60); HEMOLYSIS < 15 (0-50); Potassium 4.1 mmol/L (3.4-5.1); Sodium 138 mmol/L (137-145); Total Protein 7.1 g/dL (6.3-8.2); Triglycerides 174 mg/dL (35-150)
[2025-07-13 10:11] LABS: Prostate Specific Antigen 4.46 ng/mL (0.10-4.00)
[2025-07-13 10:19] LABS: Microalbumi Creatinin Ratio Ur 7.0 ug/mg CR (<30)
[2025-07-13 10:24] LABS: Hemoglobin A1C% w Est Avg Glu 4.9 % (4.0-6.0)
== END ==
PROVIDERS: PCP Internal Medicine; Referring Provider Internal Medicine; Visit Provider Internal Medicine
DX: E11.9 Type 2 diabetes mellitus without complications (principal); R97.20 Elevated prostate specific antigen [PSA]; E78.2 Mixed hyperlipidemia; I10 Essential (primary) hypertension; I48.0 Paroxysmal atrial fibrillation
CPT/HCPCS: 36415; 80053; 80061; 82043; 82570; 83036; 84153